=== PATIENT | female | born 1955 | race Caucasian/White ===

== ENCOUNTER → 2024-01-06 12:47 | Outpatient (REF) | payer MEDICARE, OTHER, SELFPAY | LOC: HWWDC 12:47 | PROVIDERS: ATTENDING PHYSICIAN Internal Medicine Hematology & Oncology; FAMILY PHYSICIAN Family Medicine; REFERRING PHYSICIAN Nurse Practitioner Adult Health | DX: Z12.31 Encounter for screening mammogram for malignant neoplasm of breast (principal); C50.011 Malignant neoplasm of nipple and areola, right female breast | CPT/HCPCS: 77063; 77067 ==

== ENCOUNTER → 2024-01-11 15:02 | Outpatient (REF) | payer MEDICARE, OTHER, SELFPAY | LOC: HWRAD 15:02 | PROVIDERS: ATTENDING PHYSICIAN Nurse Practitioner Adult Health; FAMILY PHYSICIAN Family Medicine | DX: C50.011 Malignant neoplasm of nipple and areola, right female breast (principal); M81.0 Age-related osteoporosis without current pathological fracture | CPT/HCPCS: 77080 ==

== ENCOUNTER 2024-05-05 06:24 | Day surgery (SDC) | payer MEDICARE, OTHER, SELFPAY ==
[2024-05-05] VITALS (10 sets, daily range): BP systolic 107–119; BP diastolic 60–71; BMI 29.8
[2024-05-05] MEDS: CELEBREX 200 MG PO (10:36)
[2024-05-05] MEDS: TYLENOL 1000 MG PO (10:36)
[2024-05-05] MEDS: NORMOSOL-R/PLASMALYTE-A 1000 IV (10:37)
== END 2024-05-05 16:02 | disposition home or self-care (01) ==
LOC: SDS 06:24
PROVIDERS: ATTENDING PHYSICIAN Specialist
DX: M75.41 Impingement syndrome of right shoulder (principal)
CPT/HCPCS: 29826; 29823; 93005

== ENCOUNTER → 2024-08-17 20:35 | Outpatient (REF) | payer MEDICARE, OTHER, SELFPAY | LOC: MRI 20:35 | PROVIDERS: ATTENDING PHYSICIAN Specialist; FAMILY PHYSICIAN Nurse Practitioner Family | DX: M25.511 Pain in right shoulder (principal) | CPT/HCPCS: 73221 ==

== ENCOUNTER → 2025-01-04 15:21 | Outpatient (REF) | payer MEDICARE, OTHER, SELFPAY | LOC: RAD 15:21 | PROVIDERS: ATTENDING PHYSICIAN Family Medicine; FAMILY PHYSICIAN Nurse Practitioner Family | DX: M25.551 Pain in right hip (principal) | CPT/HCPCS: 73502 ==

== ENCOUNTER → 2025-03-01 10:55 | Outpatient (REF) | payer MEDICARE, OTHER, SELFPAY | LOC: RAD 10:55 | PROVIDERS: ATTENDING PHYSICIAN Nurse Practitioner Adult Health; FAMILY PHYSICIAN Family Medicine | DX: C50.011 Malignant neoplasm of nipple and areola, right female breast (principal); M81.0 Age-related osteoporosis without current pathological fracture | CPT/HCPCS: 72100 ==

== ENCOUNTER → 2025-05-09 16:01 | Outpatient (REF) | payer MEDICARE, OTHER, SELFPAY | LOC: WDC 16:01 | PROVIDERS: ATTENDING PHYSICIAN Nurse Practitioner Family | DX: Z12.31 Encounter for screening mammogram for malignant neoplasm of breast (principal) | CPT/HCPCS: 77063; 77067 ==